=== PATIENT | female | born 1960 | race Asian ===

== ENCOUNTER 2016-05-18 14:20 | Outpatient (CLI) | payer BC | END 2016-05-18 14:21 | disposition home or self-care (01) | DX: R10.9 Unspecified abdominal pain (principal) ==

== ENCOUNTER 2016-10-05 06:13 | Day surgery (SDC) | payer BC ==
[2016-10-05] MEDS ORDERED: LACTATED RINGERS 1,000 ML IV ONE (10:00)
[2016-10-05] MEDS ORDERED: fentaNYL 100 MCG/2 ML VIAL IVP ONE (10:24)
[2016-10-05] MEDS ORDERED: MIDAZOLAM 2 MG/2 ML VIAL IVP ONE (10:24)
[2016-10-05 11:46] VITALS: BP 111/77
== END 2016-10-05 06:14 | disposition home or self-care (01) ==
LOC: SDS 06:13
PROVIDERS: ATTEND Surgery
PROC: 0DB68ZX Excision of Stomach, Via Natural or Artificial Opening Endoscopic, Diagnostic (ICD-10-PCS; 2016-10-05)
PROC: 0DBP8ZZ Excision of Rectum, Via Natural or Artificial Opening Endoscopic (ICD-10-PCS; principal; 2016-10-05 10:30)
PROC: 0DB48ZX Excision of Esophagogastric Junction, Via Natural or Artificial Opening Endoscopic, Diagnostic (ICD-10-PCS; 2016-10-05 10:30)
DX: R10.9 Unspecified abdominal pain (principal); K21.9 Gastro-esophageal reflux disease without esophagitis; K44.9 Diaphragmatic hernia without obstruction or gangrene; K62.1 Rectal polyp; K22.8 Other specified diseases of esophagus; K64.8 Other hemorrhoids
CPT/HCPCS: 43239; 45380; J7120; 88305

== ENCOUNTER 2017-04-30 12:46 | Outpatient (CLI) | payer BC ==
[2017-04-30] MEDS ORDERED: BARIUM SULFATE 148 GM POWDER PO ONE (13:22)
[2017-04-30] MEDS ORDERED: BARIUM SULFATE 454 GM TUBE PO ONE (13:22)
--- NOTE | 2017-05-02 12:51 | XRAY Report ---
EXAMINATION: MODIFIED BARIUM SWALLOW: 04/30/2017 CLINICAL INDICATION: Dysphagia, reflux. FINDINGS: Various consistencies of barium were prepared and administered in conjunction with Speech Pathology. There was no evidence of penetration or aspiration with any administered consistency. Please also refer to full report from Speech Pathology for further findings. IMPRESSION: NO EVIDENCE OF PENETRATION OR ASPIRATION. FLUOROSCOPY TIME: One minute 5 seconds; 1 spot image obtained (cinefluoroscopy recorded). TD: 04/30/2017 14:20 [facility]
== END 2017-04-30 12:47 | disposition home or self-care (01) ==
LOC: DI 12:46
PROVIDERS: ATTEND Family Medicine
DX: R13.10 Dysphagia, unspecified (principal); K21.9 Gastro-esophageal reflux disease without esophagitis; F32.9 Major depressive disorder, single episode, unspecified
CPT/HCPCS: 74230

== ENCOUNTER 2017-09-14 11:13 | Outpatient (CLI) | payer BC | END 2017-09-14 11:14 | disposition home or self-care (01) | LOC: LAB.R 11:13 | PROVIDERS: ATTEND Family Medicine | DX: R10.2 Pelvic and perineal pain (principal) | CPT/HCPCS: 87070; 87480; 87491; 87510; 87591; 87660 ==

== ENCOUNTER 2017-09-24 15:30 | Outpatient (CLI) | payer BC ==
--- NOTE | 2017-09-25 09:09 | Ultrasound Report ---
PELVIC ULTRASOUND: 09/24/2017 CLINICAL INDICATION: Pelvic pain. TECHNIQUE: Transabdominal pelvic ultrasound performed for global evaluation. Transvaginal pelvic ultrasound performed for detailed evaluation. Real-time scanning performed and static images obtained. FINDINGS: The uterus is anteverted, measuring 6.6 x 4.8 x 3.2 cm. The endometrium measures 3 mm. Multiple small leiomyomas are present, measuring up to 1.4 cm. The ovaries are unremarkable, with the right measuring 1.9 x 1.8 x 1.0 cm, and the left measuring 1.7 x 1.5 x 0.9 cm. No free fluid is present. IMPRESSION: LEIOMYOMATOUS UTERUS. NORMAL OVARIES. TD: 09/25/2017 08:27
== END 2017-09-24 15:31 | disposition home or self-care (01) ==
LOC: DI 15:30
PROVIDERS: ATTEND Family Medicine
DX: D25.9 Leiomyoma of uterus, unspecified (principal)
CPT/HCPCS: 76830; 76856

== ENCOUNTER 2018-08-21 10:09 | Outpatient (CLI) | payer BC ==
[2018-08-21] MEDS ORDERED: IOPAMIDOL-300 50 ML VIAL ONE (10:25)
[2018-08-21] MEDS ORDERED: IOVERSOL 320 100 ML VIAL IVP ONE ×2 (10:25→11:44)
[2018-08-21 10:51] LABS: CALCIUM 9.6 mg/dL (8.5-10.3); CREATININE 0.4 mg/dL (0.4-1.0)
[2018-08-21] MEDS ORDERED: IOVERSOL 320 50 ML VIAL PO ONE (11:45)
--- NOTE | 2018-08-21 14:17 | CT Report ---
Reason: ABDOMINAL PAIN, LLQ Procedure Date: 08/21/2018 Accession Number: [id number] / [id number] Procedure: CT - Abdomen/Pelvis W CPT Code: FULL RESULT: EXAM: CT ABDOMEN AND PELVIS EXAM DATE: 08/21/2018 11:41 AM. CLINICAL HISTORY: Abdominal pain, left lower quadrant. COMPARISONS: None. TECHNIQUE: Routine helical CT imaging was performed through the abdomen and pelvis. IV contrast: 100 mL Optiray 320. Enteric contrast: Yes. Reconstructions: Coronal and sagittal. In accordance with CT protocol optimization, one or more of the following dose reduction techniques were utilized for this exam: automated exposure control, adjustment of mA and/or KV based on patient size, or use of iterative reconstructive technique. FINDINGS: Lung Bases: Unremarkable. Liver: Hypodensities which are too small to characterize. Gallbladder/Bile Ducts: Unremarkable. Spleen: Normal. Pancreas: 4 mm cystic hypodensity in the tail of the pancreas without associated dilation of the pancreatic duct, possibly sidebranch IPMN. Adrenal Glands: Normal. Kidneys: Normal. No masses or hydronephrosis. Peritoneal Cavity/Bowel: Mild sigmoid diverticulosis without evidence of diverticulitis. No free fluid, free air or adenopathy. No masses or acute inflammatory process. The appendix is well visualized and normal. Pelvic Organs: What is likely a 1.3 x 1.1 cm subserosal fibroid is noted, image 30 series 6. The bladder and visualized pelvic organs are otherwise within normal limits. Vasculature: No aneurysms or other significant abnormality. Bones: There is a nonunited anterior corner fracture/with mild wedging of the superior endplate of the L4 vertebral body, appearance is suggestive of a subacute or chronic finding. Other: None. IMPRESSION: Mild sigmoid diverticulosis without diverticulitis at the time of imaging. Age-indeterminate anterior fracture of the superior endplate of L4 as described. [facility]
== END 2018-08-21 10:10 | disposition home or self-care (01) ==
LOC: DI 10:09
PROVIDERS: ATTEND Family Medicine
DX: K57.30 Diverticulosis of large intestine without perforation or abscess without bleeding (principal); R10.32 Left lower quadrant pain; S32.049K Unspecified fracture of fourth lumbar vertebra, subsequent encounter for fracture with nonunion
CPT/HCPCS: 36415; 74177; 80048; Q9967

== ENCOUNTER 2018-08-23 10:28 | Outpatient (CLI) | payer BC ==
--- NOTE | 2018-08-23 14:44 | Mammography Report ---
Reason: BREAST TENDERNESS Procedure Date: 08/23/2018 Accession Number: [id number] / [id number] Procedure: [facility] - Diagnostic Dig Bilat CPT Code: FULL RESULT: EXAM: Diagnostic Dig Bilat DATE: 08/23/2018 12:39 PM CLINICAL HISTORY: Bilateral breast tenderness. Diagnostic examination. TECHNIQUE: (B) - Bilateral CC and MLO views were obtained. Bilateral MLO views were also obtained. COMPARISON: 10/26/2014 and 09/03/2012. PARENCHYMAL PATTERN: (VD) - The breast(s) demonstrate(s) extremely dense parenchyma, limiting the sensitivity of mammography. FINDINGS: No mammographic correlate is identified in the bilaterally marked areas of focal tenderness. There are no suspicious masses, calcifications, or areas of distortion. IMPRESSION: Negative examination. BI-RADS category 1. RECOMMENDATION: (ANNUAL) - Recommend routine annual screening mammography. BI-RADS CATEGORY: (1) - Negative. STANDARD QUALIFYING STATEMENTS: 1. This examination was not reviewed with the aid of Computer-Aided Detection (CAD). 2. A negative or benign imaging report should not preclude biopsy if clinically suspicious findings are present. 3. Dense breasts may obscure an underlying neoplasm. 4. This examination was reviewed with the aid of 3D breast imaging (tomosynthesis).
== END 2018-08-23 10:29 | disposition home or self-care (01) ==
LOC: DI 10:28
PROVIDERS: ATTEND Family Medicine
DX: N64.4 Mastodynia (principal)
CPT/HCPCS: 77066

== ENCOUNTER 2020-06-08 08:00 | Outpatient (CLI) | payer BC, OTHER ==
[2020-06-08 18:14] LABS: BASOPHILS % (AUTO) 0.4 %; EOSINOPHILS % (AUTO) 0.7 %; HGB - HEMOGLOBIN 13.5 g/dL (12.0-16.0); LYMPHOCYTES # (AUTO) 2.2 10^3/uL (1.5-3.5); MEAN CORPUSCULAR HEMOGLOBIN 30.5 pg (27.0-31.0); MEAN CORPUSCULAR HGB CONC 32.4 g/dL (32.0-36.0); MEAN CORPUSCULAR VOLUME 94.3 fL (81.0-99.0); MEAN PLATELET VOLUME 10.1 fL (7.9-10.8); MONOCYTES # (AUTO) 0.3 10^3/uL (0.0-1.0); MONOCYTES % (AUTO) 6.5 %; NEUTROPHILS % (AUTO) 44.4 %; PLT - PLATELET COUNT 243 10^3/uL (130-450); RED BLOOD COUNT 4.42 10^6/uL (4.20-5.40); WHITE BLOOD COUNT 4.5 x10^3/uL (4.8-10.8)
[2020-06-08 18:20] LABS: HEMOGLOBIN A1c% 5.6 % (4.27-6.07)
[2020-06-08 18:47] LABS: ALBUMIN 4.8 g/dL (3.2-5.5); ALBUMIN/GLOBULIN RATIO 1.8 (1.0-2.2); ALKALINE PHOSPHATASE 52 IU/L (42-121); ALT ALANINE AMINOTRANSFERASE 14 IU/L (10-60); AST ASPARTATE AMINOTRANSFERASE 18 IU/L (10-42); BILIRUBIN,TOTAL 0.7 mg/dL (0.2-1.0); BUN - BLOOD UREA NITROGEN 13 mg/dL (6-20); CALCIUM 9.7 mg/dL (8.5-10.3); CARBON DIOXIDE - CO2 28 mmol/L (21-32); CHLORIDE 102 mmol/L (101-111); CHOL/HDL RATIO 3.6 (<4.4); CHOLESTEROL 313 mg/dL; CREATININE 0.5 mg/dL (0.4-1.0); GLUCOSE 101 mg/dL (70-100); HDL CHOLESTEROL 88 mg/dL; LDL CHOLESTEROL,CALCULATED 208 mg/dL; LDL/HDL RATIO 2.4 (<4.4); TOTAL PROTEIN 7.5 g/dL (6.7-8.2); VLDL CHOLESTEROL 17 mg/dL
[2020-06-08 18:56] LABS: PROLACTIN 84.77 ng/mL
== END 2020-06-08 23:59 | disposition home or self-care (01) ==
LOC: LAB.WCP 08:00
PROVIDERS: ATTEND Family Medicine
DX: N64.4 Mastodynia (principal); Z79.899 Other long term (current) drug therapy
CPT/HCPCS: 36415; 80053; 80061; 83036; 83721; 84146; 84443; 85025

== ENCOUNTER 2020-07-09 10:21 | Outpatient (CLI) | payer OTHER ==
--- NOTE | 2020-07-12 09:31 | Mammography Report ---
BILATERAL DIGITAL DIAGNOSTIC MAMMOGRAM 3D/2D: 07/09/2020 CLINICAL: Right breast pain. Comparison is made to exams dated: 08/23/2018 mammogram and 10/26/2014 mammogram - [facility]. The tissue of both breasts is extremely dense, which lowers the sensitivity of mammograph y. No significant masses, calcifications, or other findings are seen in either breast. IMPRESSION: NEGATIVE There is no abnormality seen in the right breast to correspond with the diffuse pain in the outer asp ect, however, clinical correlation is recommended. There is no mammographic evidence of malignancy. A 1 year screening mammogram is recommended. This exam was interpreted at Station ID: [id number]. NOTE: For mammograms, a report in lay terms will be sent to the patient. Approximately 15% of breast malignancies will not be visualized mammographically. In the management of a palpable breast mass, a negative mammogram must not discourage biopsy of a clinically suspicious lesion. Electronically Signed By: Rai gaston/jaimie:07/09/2020 11:24:49 ACR BI-RADS Category 1: Negative 3341F PARENCHYMAL PATTERN: (VD) - The breast(s) demonstrate(s) extremely dense parenchyma, limiting the sen sitivity of mammography. BI-RADS CATEGORY: (1) - 1 RECOMMENDATION: (ANNUAL) - Recommend routine annual screening mammography. [id number] 1 year screening LATERALITY: (B)
== END 2020-07-09 10:22 | disposition home or self-care (01) ==
LOC: DI 10:21
PROVIDERS: ATTEND Family Medicine
DX: N64.4 Mastodynia (principal)

== ENCOUNTER 2020-08-09 16:27 | Outpatient (CLI) | payer OTHER | END 2020-08-09 16:28 | disposition home or self-care (01) | LOC: RT 16:27 | PROVIDERS: ATTEND Psychiatry & Neurology Psychiatry | DX: Z79.899 Other long term (current) drug therapy (principal) | CPT/HCPCS: 93005 ==

== ENCOUNTER 2020-09-01 08:00 | Outpatient (CLI) | payer OTHER ==
[2020-09-01 19:37] LABS: CHOL/HDL RATIO 1.8 (<4.4); CHOLESTEROL 174 mg/dL; HDL CHOLESTEROL 97 mg/dL; LDL CHOLESTEROL,CALCULATED 69 mg/dL; LDL/HDL RATIO 0.7 (<4.4); TRIGLYCERIDES 40 mg/dL; VLDL CHOLESTEROL 8 mg/dL
== END 2020-09-01 23:59 | disposition home or self-care (01) ==
LOC: LAB.WCP 08:00
PROVIDERS: ATTEND Family Medicine
DX: E78.5 Hyperlipidemia, unspecified (principal); Z79.899 Other long term (current) drug therapy; E22.1 Hyperprolactinemia
CPT/HCPCS: 36415; 80061; 83721; 84146

== ENCOUNTER 2021-11-29 10:57 | Outpatient (CLI) | payer OTHER | END 2021-11-29 10:58 | disposition home or self-care (01) | LOC: LAB.N 10:57 | PROVIDERS: ATTEND Physician Assistant | DX: R10.13 Epigastric pain (principal) | CPT/HCPCS: 81599; 86677 ==